=== PATIENT | female | born 1965 | race Caucasian/White ===

== ENCOUNTER 2024-09-12 22:57 | Inpatient (IN) | payer SELFPAY ==
--- NOTE | 2024-09-12 23:10 | XRR_ITS ---
PROCEDURE INFORMATION: Exam: XR Chest Exam date and time: 09/13/2024 12:04 AM Age: 59 years old Clinical indication: Shortness of breath; Additional info: SOB TECHNIQUE: Imaging protocol: Radiologic exam of the chest. Views: 1 view. COMPARISON: No relevant prior studies available. FINDINGS: Lungs: No large focal consolidation. Pleural spaces: No large pleural effusion. No distinct pneumothorax. Heart/Mediastinum: Cardiomediastinal silhouette is midline and normal in size. Bones/joints: No distinct acute osseous findings. Gastrointestinal tract: Gaseous distension of bowel in the left upper quadrant partially imaged. XR/XR chest 1V portable [id number] IMPRESSION: 1. No acute cardiopulmonary findings. 2. Gaseous distension of bowel in the left upper quadrant partially imaged.
--- NOTE | 2024-09-12 23:16 | ED_ITS ---
HPI - General Adult 2 General: Chief complaint: Shortness of Breath/Dyspnea Stated complaint: lethargy, headache Time Seen by Provider: 09/12/24 23:00 History of Present Illness: Patient is brought in by EMS after her neighbor called for a wellness check. Apparently the patient lives at home with numerous cats and dogs and very dirty situation. The patient has apparently been hotlined previously. The patient states that she is glad that EMS picked her up because if they had not come today she would have . When asked what she means by that she states she does not know. She states at one point that she has been having some off-and-on shortness of breath but that that has been going on for years. She denies fever, vomiting, diarrhea. She denies chest pain, shortness of breath, or abdominal pain. Upon arrival the patient is tachycardic. She has cool extremities but she states that is because they turn the AC on in the ambulance. Will check labs, EKG, blood cultures, chest x-ray, give IV fluids, and reassess. Associated symptoms: Deny chest pain, dyspnea, headache(s), nausea, rash, palpitations or vomiting Related Data Previous Rx's ?Medication ?Instructions ?Recorded albuterol sulfate 90 mcg/actuation 2 puff inhalation Q 6H PRN 05/21/24 aerosol inhaler (Ventolin HFA) shortness of breath or wheezing #8.5 grams azithromycin 250 mg tablet See Rx Instructions PO .COM PLEX #6 05/21/24 tabs Allergies Allergy/AdvReac Type Severity Reaction Status Date / Time No Known Allergies Allergy Verified 09/12/24 23:17 Review of Systems 2 Const: Denies: fever(s) or body aches Eyes: Denies: change in vision or blurry vision ENMT: Denies: throat pain Card: Denies: chest pain or palpitations Resp: Denies: dyspnea or productive cough GI: Denies: abdominal pain, nausea or vomiting : Denies: flank pain or dysuria Musc: Denies: neck pain or back pain Skin/Breast: Denies: rash Neuro: Denies: headache(s) or numbness in extremities PFSH ED 2 PFSH: Social History Smoking and tobacco/nicotine status: never used tobacco/nicotine Physical Exam 2 Const: COMMON NORMALS: patient oriented x3 and alert HENMT: COMMON NORMALS: normocephalic and atraumatic HEAD & SCALP: n ormocephalic and atraumatic Eye: COMMON NORMALS: Equal, round and reactive pupils present and EOMs intact bilaterally PUPIL: Yes Equal, round and reactive pupils present Neck/C-Spine: COMMON NORMALS: full ROM and supple Resp: COMMON NORMALS: normal respiratory effort, No retractions and No use of accessory muscles Cardio: COMMON NORMALS: regular rhythm RATE: tachycardic RHYTHM: regular rhythm GI: COMMON NORMALS: Normal to inspection, nondistended, normoactive bowel sounds present, Soft to palpation and non-tender PALPATION: Yes Soft to palpation Neuro: COMMON NORMALS: patient oriented x3 SENSORIUM/ORIENTATION: Yes alert Psych: COMMON NORMALS: mental status grossly normal and cooperative Course 2 Vital Signs: Vital signs: Vital Signs Temperature 98.0 F 09/12/24 23:18 Pulse Rate 101 H 09/13/24 00:25 Respiratory Rate 16 09/13/24 00:25 Blood Pressure 104/81 09/13/24 00:25 Pulse Oximetry 99 09/13/24 00:25 Oxygen Delivery Me thod Room Air 09/13/24 00:25 MDM - General Adult Medical Decision Making On reassessment the patient's white blood cell count came back at 17. I am concerned for sepsis. Time 0 was 12:02 AM. Will start broad-spectrum antibiotics, increase IV fluids so that she gets 30 cc/kg total bolus, and reassess. On reassessment I talked with the patient about her test results. Her troponin came back mildly elevated. Her heart rate is improved after IV fluids. I spoke with the hospitalist we will admit for observation to follow her troponin, and rule out sepsis. Lab Data 09/12/24 23:40 09/13/24 00:10 Laboratory Results WBC 17.11 10^3/uL (3.29-11.43) H 09/12/24 23:40 RBC 6.01 10^6/uL (3.85-5.65) H 09/12/24 23:40 Hgb 17.60 g/dL (11.27-16.99) H 09/12/24 23:40 Hct 54.3 % (36-47) H 09/12/24 23:40 MCV 90.3 fl (85-98) 09/12/24 23:40 MCH 29.3 pg (27-33) 09/12/24 23:40 MCHC 32.4 g/dL (30-55) 09/12/24 23:40 RDW 13.8 % (12.1-15.1) 09/12/24 23:40 Plt Count 366 10^3/cmm (157-399) 09/12/24 23:40 MPV 11.3 fL (7.4-10.4) H 09/12/24 23:40 Neut % (Auto) 79.2 % 09/12/24 23:40 Lymph % (Auto) 12.7 % 09/12/24 23:40 [place] % (Auto) 6.9 % 09/12/24 23:40 Eos % (Auto) 0.3 % 09/12/24 23:40 Baso % (Auto) 0.4 % 09/12/24 23:40 Neut # (Auto) 13.55 10^3/uL (1.8-7.7) H 09/12/24 23:40 Lymph # (Auto) 2.2 10^3/uL (0.8-4.8) 09/12/24 23:40 [place] # (Auto) 1.2 10^3/uL (0.2-0.9) H 09/12/24 23:40 Eos # (Auto) 0.1 10^3/uL (0.0-0.8) 09/12/24 23:40 Baso # (Auto) 0.1 10^3/uL (0.0-0.1) 09/12/24 23:40 Nucleated RBC % (auto) 0 % 09/12/24 23:40 Nucleated RBCs # 0.0 /100WBC 09/12/24 23:40 Sodium 135 mmol/L (136-145) L 09/13/24 00:10 Potassium 3.1 mmol/L (3.5-5.1) L 09/13/24 00:10 Chloride 95 mmol/L (98-107) L 09/13/24 00:10 Carbon Dioxide 17 mmol/L (22-29) L 09/13/24 00:10 Anion Gap 26.1 (5-19) H 09/13/24 00:10 BUN 14 mg/dL (8-23) 09/13/24 00:10 Creatinine 0.9 mg/dL (0.5-0.9) 09/13/24 00:10 GFR Calculation 63.9 mL/min (90-130) L 09/13/24 00:10 Glucose 109 mg/dL (65-115) 09/13/24 00:10 POC Glucose 122 mg/dL (70-110) H 09/12/24 23:56 Calculated Osmolality 281 mOsm/kg (285-295) L 09/13/24 00:10 Lactic Acid 2.7 mmol/L (0.5-2.2) H 09/12/24 23:40 Calcium 10.4 mg/dL (8.5-10.5) 09/13/24 00:10 Magnesium 1.7 mg/dL (1.7-2.3) 09/13/24 00:10 Total Bilirubin 0.6 mg/dL (0.15-1.2) 09/13/24 00:10 AST 16 U/L (0-32) 09/13/24 00:10 ALT 9 U/L (0-33) 09/13/24 00:10 Alkaline Phosphatase 72 U/L (35-105) 09/13/24 00:10 Creatine Kinase 44 U/L (26-192) 09/13/24 00:10 Troponin T Baseline 26 ng/L (0-10) H 09/12/24 23:40 Total Protein 7.6 g/dL (6.6-8.7) 09/13/24 00:10 Albumin 4.0 g/dL (3.5-5.2) 09/13/24 00:10 Globulin 3.6 g/dL (1.3-4.6) 09/13/24 00:10 Amorphous Sediment Not Reportable 09/13/24 00:44 Salicylates < 0.3 mg/dL (3-10) L 09/13/24 00:10 Urine Opiates Screen Negative ng/mL (Negative) 09/13/24 00:44 Acetaminophen < 5.0 ug/mL (10-30) L 09/13/24 00:10 Ur Barbiturates Screen Negative ng/mL (Negative) 09/13/24 00:44 Ur Phencyclidine Scrn Negative ng/mL (Negative) 09/13/24 00:44 Ur Amphetamines Screen Negative ng/mL (Negative) 09/13/24 00:44 U Benzodiazepines Scrn Negative ng/mL (Negative) 09/13/24 00:44 Urine Cocaine Screen Negative ng/mL (Negative) 09/13/24 00:44 U Marijuana (THC) Screen Negative ng/mL (Negative) 09/13/24 00:44 Ethyl Alcohol < 10 mg/dL (0-10) 09/13/24 00:10 All radiology interpretation(s) finalized by discharge Critical Care Time 2 Critical Care Time: Critical Care Time: Yes Total Critical Care Time: 35 Attestation: This case had a high probability of a clinically significant, sudden, or life threatening deterioration of this patient's condition which required my full and direct attention, intervention and personal management. Discharge Plan Discharge Patient Disposition: Placed in Observation Clinical Impression: Elevated troponin, Sepsis Coding Level of Care Code ED Compactor Driver for Priscilla Victoria
[2024-09-12 23:18] VITALS: BP 97/69; PULSE 107; RESP 17; TEMP 36.7; O2SAT 97; BMI 25.7
[2024-09-12] MEDS: sodium chloride 0.9% 1,000 ML 999 ML IV (23:35)
--- NOTE | 2024-09-12 23:45 | ECG_ITS ---
[facility]. 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 Measurements Intervals [place] Rate: 94 P: 21 GA: 160 QRS: -54 QRSD: 110 T: 17 QT: 351 QTc: 441 Interpretive Statements SINUS RHYTHM LEFT AXIS DEVIATION [QRS AXIS < -30] No previous ECG available for comparison Electronically Signed On 09-14-2024 22:05:49 CDT by Félix Chambers M.D. [email or web address]
[2024-09-12 23:52] LABS: Basophils # 0.1 10^3/uL (0.0-0.1); Basophils % 0.4 %; Eosinophils # 0.1 10^3/uL (0.0-0.8); Eosinophils % 0.3 %; Hematocrit 54.3 % (36-47); Lymphocytes # 2.2 10^3/uL (0.8-4.8); Lymphocytes % 12.7 %; Mean Corpuscular HGB Conc 32.4 g/dL (30-55); Mean Corpuscular Hemoglobin 29.3 pg (27-33); Mean Corpuscular Volume 90.3 fl (85-98); Mean Platelet Volume 11.3 fL (7.4-10.4); Monocytes # 1.2 10^3/uL (0.2-0.9); Monocytes % 6.9 %; Neutrophils # 13.55 10^3/uL (1.8-7.7); Neutrophils % 79.2 %; Nucleated Red Blood Cells % 0 %; Platelet Count 366 10^3/cmm (157-399); Red Blood Count 6.01 10^6/uL (3.85-5.65); Red Cell Distribution Width 13.8 % (12.1-15.1); White Blood Count 17.11 10^3/uL (3.29-11.43)
[2024-09-12 23:55] VITALS: BP 119/74; PULSE 97; RESP 17; O2SAT 97
[2024-09-13] VITALS (11 sets, daily range): BP systolic 85–131; BP diastolic 54–96; PULSE 69–123; RESP 14–22; TEMP 36.3–36.7; O2SAT 94–100; BMI 24.4
[2024-09-13 00:01] LABS: Glucose Point of Care 122 mg/dL (70-110)
--- NOTE | 2024-09-13 00:02 | PC.NURSE ---
patient BIB EMS. patient's neighbor called for welfare check on patient due to not seeing her for 4 days. Fire Department and EMS responded. Patient was A/O, had vague c/o, headache at times, huffing and puffing and having to use her inhaler on regular basis for the last few days. She is A/O x 4. Of note, EMS stated patient is living in deplorable conditions. She has 30 cats in her house as well as 4 dogs. She is covered in cat hair and her shoes are coated in animal feces. Her clothing is covered in cat hair and filth. She has been hot lined by EMS and they were informed that a vocational case manager will be contacting the patient in the morning.
[2024-09-13] MEDS: sodium chloride 0.9% 1,000 ML 999 ML IV (00:10)
[2024-09-13 00:13] LABS: Lactic Sepsis W/Reflex 2.7 mmol/L (0.5-2.2)
[2024-09-13 00:19] LABS: Troponin(5th) Baseline 26 ng/L (0-10)
[2024-09-13] MEDS: piperacillin-tazobactam 3.375 GM in sodium chloride 0.9% (plus) 50 ML IV (00:20)
[2024-09-13] MEDS: sodium chloride 0.9% 250 ML 500 ML IV (00:35)
[2024-09-13 00:40] LABS: Alanine Aminotransferase 9 U/L (0-33); Alkaline Phosphatase 72 U/L (35-105); Anion Gap 26.1 (5-19); Aspartate Amino Transferase 16 U/L (0-32); Blood Urea Nitrogen 14 mg/dL (8-23); Calcium 10.4 mg/dL (8.5-10.5); Carbon Dioxide 17 mmol/L (22-29); Chloride 95 mmol/L (98-107); Creatine Phosphokinase 44 U/L (26-192); Creatinine Clr Calc Pharmacy 79.8014; Globulin 3.6 g/dL (1.3-4.6); Glomerular Filtration Rate 63.9 mL/min (90-130); Glucose 109 mg/dL (65-115); Magnesium 1.7 mg/dL (1.7-2.3); Osmolality Calculated 281 mOsm/kg (285-295); Potassium 3.1 mmol/L (3.5-5.1); Sodium 135 mmol/L (136-145); Total Bilirubin 0.6 mg/dL (0.15-1.2); Total Protein 7.6 g/dL (6.6-8.7)
[2024-09-13 00:41] LABS: Acetaminophen < 5.0 ug/mL (10-30); Alcohol Level < 10 mg/dL (0-10); Salicylate < 0.3 mg/dL (3-10)
[2024-09-13 01:02] LABS: Bilirubin Urine Negative (Negative); Blood Urine Negative (Negative); Glucose Urine UA Negative (Normal); Ketones Urine 4+ (Negative); Leukocyte Esterase Urine 1+ (Negative); Nitrate Urine Negative (Negative); Protein Urine 1+ (Negative); Specific Gravity, Urine 1.028 (1.005-1.030); Urine Appearance Clear (CLEAR); Urine Color Yellow (Yellow); pH Urine 6.5 (5-7)
[2024-09-13 01:07] LABS: Add Urine Microscopic? YES; Bacteria Urine 1+ /hpf; Hyaline Casts Urine 34.74 /lpf; RBC Urine 0-2 /hpf (0-2)
[2024-09-13 01:09] LABS: Amphetamines Screen Urine Negative (Negative); Barbiturates Screen Urine Negative (Negative); Benzodiazepines Screen Urine Negative (Negative); Cocaine Screen Urine Negative (Negative); Opiate Screen Urine Negative (Negative); PCP Screen Urine Negative (Negative); THC Screen Urine Negative (Negative)
[2024-09-13 01:15] LABS: Add Urine Culture? Yes; UA Slide Review UA Slide Review Perf
[2024-09-13 01:37] LABS: Reflex Lactate Order REFLEX LACTIC ORDERD
[2024-09-13] MEDS: vancomycin 1,750 MG/350 ML PIGGYBACK 175 MG IV (01:45)
[2024-09-13 02:09] LABS: Troponin 5 2HR 22.68 ng/L (0-10)
[2024-09-13 02:10] LABS: Troponin 5 2HR Delta -3.32 ABS# (0-10)
--- NOTE | 2024-09-13 02:20 | PM.HP ---
Providers/Chief Complaint Admitting Physician: Steve Valadez MD Primary Care Provider: None currently since [facility] Chief Complaint: lethargy, headache History of Present Illness Deepika Catalan is a 59 year old female lives alone in a house with reported 30 cats and 4 dogs. The patient states she does not travel to the store because of the cost of cabs. She orders her supplies and food from [employer] and the boxes were building up and neighbor did not see her for few days so called 911 for a welfare check. She states that ambulance, fire department and police all showed up. Patient states she has not been feeling that great recently with asthma chronic bronchitis restrictive lung disease since black mold exposure 12 to 15 years ago. The last few days she has had a dry cough dyspnea on exertion and felt unsteady on her feet. She was brought to the hospital where she was found to be in very poor hygienic condition but also found to have elevated troponin, lactic acid and white count. She was given broad-spectrum antibiotics, blood cultures and referred for admission. Patient reports no pain or headache or myalgias. She denies fevers or chills she does have dyspnea on exertion and sweating with exertion. Patient tells me she fell a couple times noninjury falls next to the bed within the last month Review of Systems Narrative: Patient reports weight loss from 400 pounds down to 168 lost 250 pounds at a rate of 1 to 2 pounds a week. She states this maintained her skin. 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 She moved here to take care of her mom who then of lung cancer age 1999. Patient states she went back to work after that and had some visual kaleidoscope lights associate with hypertension per the doctor that saw her at the time. Sounds like she stopped working at that time. Patient is tangential historian. She is both reported that she told the police that she thought she was being arrested and that she felt fine and she then also told the evaluating emergency physician that if she was not seen today she would have . Patient tells me that she she has felt sick but not specific symptoms but also has a sense of impending doom at times Medications/Allergies Home Medications ?Medication ?Instructions ?Recorded ?Confirmed ?Last Taken ?Type albuterol sulfate 90 mcg/actuation 2 puff inhalation Q6H PRN 05/21/24 05/21/24 Unknown Rx aerosol inhaler (Ventolin HFA) shortness of breath or wheezing #8.5 grams azithromycin 250 mg tablet See Rx Instructions PO .COMPLEX #6 05/21/24 05/21/24 Unknown Rx tabs Allergies Allergy/AdvReac Type Severity Reaction Status Date / Time No Known Allergies Allergy Verified 09/12/24 23:17 PFSH Acute PFSH: Social History (Updated 09/13/24 @ 02:27 by Steve Valadez MD) Smoking and tobacco/nicotine status: never used tobacco/nicotine Alcohol intake: never Substance/Drug Use: never Additional social history: Patient lives alone she is uncertain regarding CODE STATUS and we discussed that that defaults to full code which she understands on 09/13/2024 as discussed with Steve Valadez MD Vitals/I&O/Wt Last Vital Signs Temp 98.0 F 09/12/24 23:18 Pulse 103 H 09/13/24 01:30 Resp 19 H 09/13/24 01:30 BP 114/96 09/13/24 01:30 Pulse Ox 97 09/13/24 01:30 O2 Del Method Room Air 09/13/24 01:30 09/12/24 09/12/24 09/13/24 14:59 22:59 06:59 Intake Total 50 / 50 Balance 50 / 50 Weight last 48 hrs Weight 83.915 kg Physical Exam Narrative: General Well-developed well-nourished tall female in no acute cardiopulmonary distress she is dirty with soil or stool on her face on the lateral cheeks. She smells badly of body odor. CV regular rate and rhythm Lungs clear to auscultation with good air movement no significant wheezes Abdomen positive bowel sounds soft nontender Calves no tenderness cords pretibial edema or asymmetry Skin warm and dry soiled Mentation alert and oriented pleasant she is tangential and talkative Data 09/12/24 23:40 09/13/24 00:10 Micro: Microbiology 09/12/24 23:44 Blood Culture - Preliminary Blood SPECIMEN COLLECTED 09/12/24 23:40 Blood Culture - Preliminary Blood SPECIMEN COLLECTED A&P Assessment and plan (1) Sepsis: Patient received fluid boluses and empiric antibiotics. Urine did come back with squamous cells but also bacteria, leukocyte esterase and ketones. This may represent contamination. Cultures pending blood cultures also pending. Will obtain COVID flu and RSV study (2) Elevated troponin: Repeat troponin pending patient denies chest pain (3) Hypokalemia: Potassium will be replaced and check magnesium and phosphorus levels (4) Metabolic acidosis: Fluid boluses and recheck PDMP PDMP Reviewed: Not Reviewed Attestations Medical Necessity Statement*: Patient is admitted via observation and anticipated to stay only 1-2 midnights Coding Level of Care Code Acute Code for [facility] Fwd Diagnoses Sepsis A41.9 Elevated troponin R79.89 Hypokalemia E87.6 Metabolic acidosis E87.20 Time Spent (min) 70
[2024-09-13 02:46] LABS: Magnesium 1.8 mg/dL (1.7-2.3); Phosphorus 2.5 mg/dL (2.5-4.5)
[2024-09-13 02:52] LABS: Creatine Phosphokinase 105 U/L (26-192)
[2024-09-13 03:14] LABS: Lactic Acid level (Lactate) 1.2 mmol/L (0.5-2.2)
[2024-09-13 03:37] LABS: Influenza A NEGATIVE (Negative); Influenza B NEGATIVE (Negative); Respiratory Syncytial Virus Ce NEGATIVE (Negative); SARS-CoV-2 PCR NEGATIVE (Negative)
[2024-09-13] MEDS: cefTRIAXone 1,000 mg SDV 1000 MG IVP (04:10)
[2024-09-13] MEDS: enoxaparin 40 mg/0.4 mL Syringe SUBCUT (04:11)
[2024-09-13] MEDS: sodium chlor 0.9% + KCl 20 mEq 20 MEQ/1,000 ML BAG 100 MEQ IV ×3 (04:11→23:50)
--- NOTE | 2024-09-13 07:46 | PHA.VACGOAL ---
Vancomycin Goal - Goal Vancomycin Goal:: 15-20 mg/L Vancomycin Indication:: Other (SEPSIS) - Therapy Current therapy:: Other Antibiotic (CEFTRIAXONE) Day of therpy:: Day []of [] . Actual body weight (kg): 185 lb 14.4 oz - Data Labs: WBC 17.11 10^3/uL (3.29-11.43) H 09/12/24 23:40 RBC 6.01 10^6/uL (3.85-5.65) H 09/12/24 23:40 Hgb 17.60 g/dL (11.27-16.99) H 09/12/24 23:40 Hct 54.3 % (36-47) H 09/12/24 23:40 MCV 90.3 fl (85-98) 09/12/24 23:40 MCH 29.3 pg (27-33) 09/12/24 23:40 MCHC 32.4 g/dL (30-55) 09/12/24 23:40 RDW 13.8 % (12.1-15.1) 09/12/24 23:40 Sodium 135 mmol/L (136-145) L 09/13/24 00:10 Potassium 3.1 mmol/L (3.5-5.1) L 09/13/24 00:10 Chloride 95 mmol/L (98-107) L 09/13/24 00:10 Carbon Dioxide 17 mmol/L (22-29) L 09/13/24 00:10 Anion Gap 26.1 (5-19) H 09/13/24 00:10 BUN 14 mg/dL (8-23) 09/13/24 00:10 Creatinine 0.9 mg/dL (0.5-0.9) 09/13/24 00:10 GFR Calculation 63.9 mL/min (90-130) L 09/13/24 00:10 Last dialysis session:: N/A Treatment plan:: new consult Regimen:: LOADING DOSE OF 1750 MG X1 GIVEN. STARTING MAINTENANCE DOSE OF 1250 MG Q12H PER DOSING PROTOCOL. Follow up:: WILL MONITOR AND CONTINUE TO FOLLOW UP DAILY.
--- NOTE | 2024-09-13 11:37 | PC.PHAR ---
PAtient states she ordered boost because she doesn't eat much but has been sick so hasn't drank it in over a week . PAtient also states she takes Alesio for asthma . She had some at home , then stated since Cov[place]. 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 Last fill for her inhaler was 25days.
[2024-09-13] MEDS: vancomycin 1,250 MG/250 ML PIGGYBACK 166.67 MG IV (13:45)
--- NOTE | 2024-09-13 17:37 | P.PN_ITS ---
Subjective 2 Subjective: Patient is a difficult historian with tangential thought process. On one hand she states that she has been sick for years and was bedridden for 2 years but then got better. Then she states in May she had acute bronchitis and was given an inhaler and Zithromax. She states that she ran out of the inhaler and got severely worse these last few days. She states that she was scared when the well check was done with the amount of responders. She at one time tells me she had no Ventolin to use and then reported that she just did not think she needed it because she did not think she had an asthma attack. The report from the police and other responders is that she was actively using the inhaler and not improving. She does reveal that she is a loner and does not go out of the house. She reports she does not like to talk to other people and that her family are her cats. While on one hand she knew she was getting sicker on the other hand she reports she did not know she was that sick. It is difficult to have educational conversation with her Vitals/I&O/Wt Last Vital Signs Temp 98.0 F 09/13/24 16:00 Pulse 104 H 09/13/24 16:00 Resp 17 09/13/24 16:00 BP 98/60 09/13/24 16:00 Pulse Ox 96 09/13/24 16:00 O2 Del Method Room Air 09/13/24 16:00 09/13/24 09/13/24 09/13/24 06:59 14:59 22:59 Intake Total 2880 / 2880 1796.667 / 1796.667 250 / 2046.667 Balance 2880 / 2880 1796.667 / 1796.667 250 / 2046.667 Weight last 48 hrs Weight 84.323 kg Weight 79.469 kg Weight 83.915 kg Physical Exam 2 Narrative: Patient awake alert she answers orientation questions appropriate but she is otherwise tangential and circular and repetitive in her conversation Patient's teeth/jaw look protuberant and misaligned with mirror observation and palpation of the jawline I do not discern a palpable mass Heart regular rate and rhythm normal S1-S2 without murmurs clicks gallops or rubs Lungs rhonchi at the left base overall poor inspiratory effort and some scattered fine crackles Abdomen soft nontender nondistended positive bowel sounds Extremities nonpitting edema to the mid calf area Neuro moves all extremities equally good strength no sensory deficit Psych I am unclear if she might have an on underlying psychiatric condition versus lack of insight or lacking decision making capability Data 09/12/24 23:40 09/13/24 00:10 Micro: Microbiology 09/12/24 23:44 Blood Culture - Preliminary Blood SPECIMEN COLLECTED 09/12/24 23:40 Blood Culture - Preliminary Blood SPECIMEN COLLECTED A&P Assessment and plan (1) Sepsis: Patient received fluid boluses and empiric antibiotics. Urine did come back with squamous cells but also bacteria, leukocyte esterase and ketones. This may represent contamination. Cultures pending blood cultures also pending. Respiratory panel is negative (2) Elevated troponin: No delta change for second troponin (3) Hypokalemia: Potassium will be replaced Magnesium level 1.8 phosphorus 2.5 She is likely hypokalemic from poor oral intake (4) Metabolic acidosis: Fluid boluses and recheck Plan Initially patient was reportedly briefly refusing most consults and care. She reports she did not feel comfortable talking to the [facility] worker. I offered to meet with the [facility] worker and myself and the patient is agreeable After multiple attempts I explained to the patient the usual care in the hospital includes bathing and she eventually allowed a bath. However she did not allow her hair to be washed which appears to be significantly tangled under a hat with completely covered with cat hair and malodorous. As discussed in team rounds today I agreed to order a dementia screening evaluation with a MoCA or slums as well as OT to assess for home skills. She did participate with PT and OT. Will order speech therapy for cognitive eval Consider psych consult for underlying psych psychiatric illness versus lack of capacity to understand medical condition PDMP PDMP Reviewed: Not Reviewed Attestations 2 Medical Necessity Statement*: Patient presented with sepsis requires continued admission for IV antibiotics and the usual treatment of sepsis Coding Level of Care Code Acute Code for [facility] Fwd Diagnoses Sepsis A41.9 Elevated troponin R79.89 Hypokalemia E87.6 Metabolic acidosis E87.20
[2024-09-14] VITALS (12 sets, daily range): BP systolic 100–120; BP diastolic 58–74; PULSE 66–107; RESP 15–18; TEMP 36.3–37.1; O2SAT 94–99
[2024-09-14] MEDS: cefTRIAXone 1,000 mg SDV 1000 MG IVP (02:52)
[2024-09-14] MEDS: vancomycin 1,250 MG/250 ML PIGGYBACK 166.6 MG IV (02:56)
[2024-09-14] MEDS: enoxaparin 40 mg/0.4 mL Syringe SUBCUT (02:57)
[2024-09-14 06:04] LABS: Anion Gap 12.4 (5-19); Blood Urea Nitrogen 9 mg/dL (8-23); Calcium 9.1 mg/dL (8.5-10.5); Carbon Dioxide 22 mmol/L (22-29); Chloride 108 mmol/L (98-107); Glucose 126 mg/dL (65-115); Osmolality Calculated 288 mOsm/kg (285-295); Potassium 3.4 mmol/L (3.5-5.1); Sodium 139 mmol/L (136-145)
--- NOTE | 2024-09-14 09:43 | PC.CHAP ---
Pastoral Care Encounter/Spiritual Assessment Type of Contact [] Declined dip tanker visit [] Patient/Family/Request visit [] Outpatient visit [] Follow-up visit [] Physician referral [] Code/Alert [] Routine visit [] Staff referral [] Actively dying [] Patient sleeping [] Family support [] [] Out of room [] Palliative care [] [x] Receiving care in room [] Pre-surgical visit [] Trauma [] Long length of stay [] ICU visit [] Other: Relational/Emotional Strength [] Patient feels connected with others/family/visitors/staff [] Distress [] Loneliness/isolation [] Abandonment Spirituality of Patient [] Person of [place] [] Attends Amish of their [place] [] Believes in Prayer [] Reads Bible or Scientology materials [] There are Spiritual issues to be addressed Home Therapy Teacher Interventions [] Prayer [] Active listening [] Non-anxious presence [] Spiritual/emotional support [] Crisis/trauma care [] Spiritual counseling [] Bereavement support [] Provided bereavement packet [] Provided Bible/devotional materials [] Provided toy/stuffed animal, coloring book to patient or family member [] Provided Communion [] Anointing/[place] [] Salvation [] Completed spiritual assessment [] Other: Impact on Illness or Injury [] Angry [] Fearful [] Anxious [] Often cries [] Exhaustion [] Unable to work [] Unable to attend zoroastrianism [] Unable to walk/stand [] Unable to read [] Unable to drive [] Unable to eat/drink [] Unable to sleep [] Unable to be with family [] Patient intubated [] Other: Summary Time spent with patient
--- OUTSIDE RECORDS SUMMARY | 2024-09-14 11:03 | XMS_ITS | Clinical Summary ---
Author Organization [facility] Address [address] [place] [address] Care Team Providers Care Blanket Maker Name Role Phone Julian Nogueira MD Primary Care Provider [phone] Allergies No known active allergies Medications ibuprofen (MOTRIN) 200 mg tablet Take 200 mg by mouth every 6 hours as needed for Pain, Mild. Active Ciclesonide (ALVESCO) 160 mcg/actuation HFA Aerosol InhalerIndication s:Mild persistent asthma without complication Take 2 Puffs by inhalation 2 times daily. 1 Gram 5 8 Active montelukast (SINGULAIR) 10 mg tabletIndications :Mild persistent asthma without complication Take 1 Tablet (10 mg) by mouth daily at bedtime. 30 Tablet 5 8 Active VENTOLIN HFA 90 mcg/actuation inhalerIndication s:Mild persistent asthma without complication TAKE TWO TO THREE PUFFS BY INHALATION EVERY 6 HOURS NEEDED FOR SHORTNESS OF BREATH 18 Gram 2 9 Active Active Problems Problem Noted Date Diagnosed Date Severe obesity (BMI 35.0-39.9) with comorbidity 07/25/2016 Mild persistent asthma without complication 07/06 Social History Tobacco Use Types Packs/Day Years Used Date Smoking Tobacco: Never Smokeless Tobacco: Never Alcohol Use Standard Drinks/Week Comments Yes 0 (1 standard drink = 0.6 oz pur e alcohol) rare Comments No Sex and Gender Information Value Date Recorded Sex Assigned at Not on file Legal Sex Female 8:27 AM CDT Gender Identity Not on file Sexual Orientation Not on file Last Filed Vital Signs Vital Sign Reading Time Taken Comments Blood Pressure 129/92 07/14/2017 9:12 AM CDT Pulse 72 07/14/2017 9:12 AM CDT Temperature 36.7 C (98 F) 07/14/2017 9:12 AM CDT Respiratory Rate 12 07/14/2017 9:12 AM CDT Oxygen Saturation 95% 07/14/2017 9:12 AM CDT Inhaled Oxygen Concentration - - Weight 119.6 kg (263 lb 9.6 oz) 07/14/2017 9:12 AM CDT Height 180.3 cm (5' 11 ) 07/14/2017 9:12 AM CDT Body Mass Index 36.76 07/14/2017 9:12 AM CDT Plan of Treatment Health Maintenance Due Date Last Done Comments Pre-Diabetes and Diabetes Screening 1964 DTAP/TDAP/TD VACCINES (1 - Tdap) 08/22/1983 HPV/Cotest (21-29) 1985 CERVICAL CANCER SCREENING 1994 HPV/Cotest (30-65) 1994 PAP SMEAR 1994 BREAST CANCER SCREENING 2004 COLORECTAL SCREENING 2009 Colorectal Cancer Screening 2009 FIT-DNA Q 3 years 2009 FIT/FOBT Q 1 year 2009 Flex Sig/CT Colonography Q 5 years 2009 ZOSTER VACCINE (1 of 2) 2014 INFLUENZA VACCINE (#1) 2023 RSV VACCINE (60+ or ) (1 - Risk 60-74 years 1-dose series) 2024 HEPATITIS B VACCINES Aged Out No long er eligible based on patient's age to complete this topic Care Teams Blanket Maker Relationship Specialty Start Date End Date Julian Nogueira MD [address] [place] [address] PCP - General Family Practice 09/03/18
--- OUTSIDE RECORDS SUMMARY | 2024-09-14 11:03 | XMS_ITS | Clinical Summary ---
Author Organization [facility] Address [address] [facility] Attn: Epic Prelude ADT MIKE DEJESUS [address] Care Team Providers Care Stock Control Supervisor Name Role Phone Julian Nogueira MD Primary Care Provider [phone] Allergies No known active allergies Medications albuterol sulfate (VENTOLIN HFA) 90 mcg/Actuation inhalerIndication s:Mild persistent asthma without complication TAKE TWO TO THREE PUFFS BY INHALATION EVERY 6 HOURS NEEDED FOR SHORTNESS OF BREATH 18 Gram 2 9 Active montelukast (SINGULAIR) 10 mg tabletIndications :Mild persistent asthma without complication Take 1 Tablet (10 mg) by mouth daily at bedtime. 30 Tablet 5 8 Active Ciclesonide 160 mcg/actuation HFA Aerosol InhalerIndication s:Mild persistent asthma without complication Take 2 Puffs by inhalation 2 times daily. 1 Gram 5 8 Active ibuprofen (MOTRIN) 200 mg tablet Take 200 mg by mouth every 6 hours as needed for Pain, Mild. 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
--- NOTE | 2024-09-14 11:55 | PC.NUTR ---
Current PO intake likely meeting Pt's estimated needs. During interview, Pt rambled in regards to what and how she ate at home, so will report general observations. Pt said she is a horrible cook and prefers to microwave food. When she does eat, she shares with her cats and dog. Conflicting reports presented re: last 3-4 weeks, but in general said her appetite was down and she was experiencing GERD and referenced vomiting often after eating or drinking. She enjoys the food here and is currently eating on average 75% of her meals which meets her EEN%. At home she said she drinks as many as 4 Boost protein shakes/day. Pt commented that at one time she weighed 400lbs and has gotten down to 185lbs by losing 1-2lbs/week over past 3-4years.
[2024-09-14] MEDS: sodium chlor 0.9% + KCl 20 mEq 20 MEQ/1,000 ML BAG 100 MEQ IV (12:31)
[2024-09-14] MEDS: albuterol 2.5 mg/3 mL Neb INHALATION ×2 (15:23→19:54)
--- NOTE | 2024-09-14 16:12 | P.NPUCON_ITS ---
Providers/Reason for Consult 2 Consulting Physican/Specialty*: Darryl Alba MD/Psychiatry Reason for Consult*: competency Attending Physician: Robin Mata, DO Psych Consult HPI History of Present Illness Deepika Catalan is a 59 year old female with no prior history of inpatient or outpatient psychiatric history who presents to [facility] via ambulance after a wellness check had revealed that the patient had been struggling with shortness of breath and reporting that she had ran out of her inhaler several days ago. The patient had reported that she had been at her home on 09/10/2024 and states that she was surprised to find that 2 people were in side of her lyons of her house. She reports that they had revealed to her that they were performing a wellness check and the patient reports that someone around her possibly a neighbor had informed the authorities to send someone into her home out of concern that something may have happened to the patient. 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 She had complained that she had her [employer] delivery stolen previously and stated that she was always vigilant about people stealing things as she states that she had grown up in a impoverished part of [facility] where she needed to keep mindful of people taking other peoples items in the mail. The patient reports that she has indeed been living in a house that she owns that requires significant work. She reports that the home was inherited by her after her mother in 2013. She reports at that time it was already less than ideal for her. She reports that she is motivated to fix up the home and states that it is not an optimal situation for but it is her home. She reports that she has no support here from family or friends and describes being somewhat isolative. She reports no issues with depression or social phobia. She reports that she has a tendency to bring cats into her home and states that she has 30 cats and reports that she only has 8 litter boxes. She states that she knows that she needs to have more litter boxes and reports that she was upset that 3 of her kittens had . She reports that she had been diagnosed with restrictive lung disease stating that she had 30% lung capacity initially but it has improved to 50% recently. She had stated that she had been exposed to black mold approximately 15 years ago. The patient had reported that she has never had thoughts of hurting herself or others. She denied any problems with sleep or appetite. She had reported that she has been motivated to lose weight and had lost more than 200 pounds over the past few years. She does report at times that she struggles with chronic worry and states that she often has thoughts of feeling as if something bad were going to happen. She denies any history of psychosis. She denied any history of tommy. Psychiatric history: None reported Substance abuse history: None reported Medical history: As stated-Asthma, Restricted Pulmonary Disease. Medications: As stated Family psychiatric history: Reported history of alcoholism in both sides of the family Allergies: Bee pollen Social history: Patient was born in [place] and raised by her mother. She reports that the patient had and states that her mother had been her primary parent. She reports that both parents had remarried. She reports that she was an only child and has 3 stepsisters that she has limited contact with. 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 She reports no prior history of sexual physical or emotional abuse. She reports she has never been and has no children. She reports being content in her current situation as she moved here to care for her mother in 2010. Her mother in 2013. She states that she owns her current home and has numerous cats as pets. She is currently not on disability. She currently lives in [place] in her own home. Meds Home Medications and Allergies Home Medications ?Medication ?Instructions ?Recorded ?Confirmed ?Last Taken ?Type albuterol sulfate 90 mcg/actuation 2 puff inhalation Q 6H PRN 05/21/24 09/13/24 09/12/24 Rx aerosol inhaler (Ventolin HFA) shortness of breath or wheezing #8.5 grams food supplemt, lactose-reduced 1 ea PO DAILY 09/13/24 09/13/24 09/05/24 History Allergies Allergy/AdvReac Type Severity Reaction Status Date / Time bee pollen Allergy Mild Itching on Unverified 09/14/24 06:52 feet Per patent. Current Medications Current Medications Generic Name Dose Route Start Last Admin Trade Name Freq PRN Reason Stop Dose Admin Albuterol Sulfate 2.5 mg 09/14/24 13:30 09/14/24 15:23 Albuterol 2.5 Mg/3 Ml Neb INHALATION 2.5 mg Q4H.RESPIRATORY ALEJO Administration Ceftriaxone Sodium 1,000 mg 09/13/24 03:21 09/14/24 02:52 Ceftriaxone 1,000 Mg Sdv IVP 1,000 mg Q24H ALEJO Administration Protocol Enoxaparin Sodium 40 mg 09/13/24 03:21 09/14/24 02:57 Enoxaparin 40 Mg/0.4 Ml Syringe SUBCUT 40 mg Q24H ALEJO Administration Potassium Chloride/Sodium Chloride 20 meq in 1,000 mls @ 50 mls/hr 09/13/24 03:21 09/14/24 12:31 Sodium Chlor 0.9% + Kcl 20 Meq IV 100 mls/hr .Q20H ALEJO Administration Non-Formulary Medication 1 each 09/14/24 09:00 09/14/24 13:07 Food Supplemt, Lactose-Reduced PO Not Given DAILY ALEJO PFSH NPU 2 PFSH: Social History (Updated 09/13/24 @ 02:27 by Steve Valadez MD) Smoking and tobacco/nicotine status: never used tobacco/nicotine Alcohol intake: never Substance/Drug Use: never Additional social history: Patient lives alone she is uncertain regarding CODE STATUS and we discussed that that defaults to full code which she understands on 09/13/2024 as discussed with Steve Valadez MD Mental Status Exam 2 MSE Comments: Patient is casually dressed white female with poor hygiene and good eye contact who was friendly and cooperative on interview. Her speech was normal in regards to rate and productivity with no evidence of pressured speech. Her thought process was circumstantial at times and excessively detailed with extraneous information but was able to follow a stream of thought. She denied any homicidal or suicidal ideation. There was no evidence of delusional thinking. Her mood was described as okay. Her affect appeared slightly restricted in range. She did not appear to be responding to internal stimuli. She was alert and oriented to person, place, time, and situation. She was able to follow two- step commands. Her immediate recall was 3 out of 3 and recall of 3 words after 5 minutes was 3 out of 3 as well. Her attention span appeared fair. Her insight appeared limited. Her judgment at this time was guarded. Her impulse control appeared adequate. She did appear to understand the potential problem with her home situation and expressed motivation to correct her situation. Vitals/I&O/Wt Last Vital Signs Temp 97.8 F 09/14/24 12:00 Pulse 99 09/14/24 15:33 Resp 16 09/14/24 15:23 BP 100/66 09/14/24 12:00 Pulse Ox 98 09/14/24 15:23 O2 Del Method Room Air 09/14/24 15:23 09/14/24 09/14/24 09/14/24 06:59 14:59 22:59 Intake Total 1550 / 4076.667 1720 / 1720 Balance 1550 / 4076.667 1720 / 1720 Weight last 48 hrs Weight 83.915 kg Weight 84.323 kg Weight 79.469 kg Weight 83.915 kg Data NPU 09/12/24 23:40 09/14/24 04:29 Micro: Microbiology 09/13/24 00:44 Urine Culture - Preliminary Urine,Clean Catch 09/12/24 23:44 Blood Culture - Preliminary Blood NEGATIVE TO DATE 09/12/24 23:40 Blood Culture - Preliminary Blood NEGATIVE TO DATE Microbiology 09/13/24 00:44 Urine,Clean Catch Urine Culture - Preliminary 09/12/24 23:44 Blood Blood Culture - Preliminary NEGATIVE TO DATE 09/12/24 23:40 Blood Blood Culture - Preliminary NEGATIVE TO DATE A&P Assessment and plan (1) Hypokalemia: (2) Metabolic acidosis: (3) Sepsis: Plan 5-year-old female admitted for treatment of pneumonia currently on antibiotics. At this time there appears to be no reason for inpatient psychiatric hospitalization. She seems able to make reasonable decisions and does appear to understand the potential pitfalls of returning home to a potentially poor situation in regards to her problems with breathing. She was agreeable to considering some assistance with her living situation as she had expressed desire to clean up and fix her situation but also at the same time reported financial stressors that had prevented her from being able to fix her current living situation. She likely has some personality disorder that is contributing to her current problem. 1. Suggest [place] testing if primary team wishes to determine ability for patient to live independently. 2. Sean follow. PDMP PDMP Reviewed: Not Reviewed Attestations NPU 2 Medical Necessity Statement*: Not applicable. Coding Level of Care Code Acute Code for Chg Fwd Diagnoses Hypokalemia E87.6 Metabolic acidosis E87.20 Sepsis A41.9
--- NOTE | 2024-09-14 17:23 | P.PN_ITS ---
Subjective 2 Subjective: Patient states that she is feeling better except she reports episodes of vomiting yesterday. She is feels like she might vomit but she says that she is not nauseous. She does not wish any medication for this feeling. Again we spent a lot of time discussing her situation today. She remains very circumferential in her conversation and I agree that she gives additional information not necessary to discussion. She did admit to me today that she knows her house is filthy and she would like help with cleaning up if possible. She tells me she is willing to work and discuss her finances with anyone as long as they are respectful. I explained to her that it was my duty to find out if she has the capacity to understand her condition and her health. Vitals/I&O/Wt Last Vital Signs Temp 98.0 F 09/14/24 16:00 Pulse 99 09/14/24 16:00 Resp 17 09/14/24 16:00 BP 111/67 09/14/24 16:00 Pulse Ox 98 09/14/24 16:00 O2 Del Method Room Air 09/14/24 16:00 09/14/24 09/14/24 09/14/24 06:59 14:59 22:59 Intake Total 1550 / 4076.667 1720 / 1720 Balance 1550 / 4076.667 1720 / 1720 Weight last 48 hrs Weight 83.915 kg Weight 84.323 kg Weight 79.469 kg Weight 83.915 kg Physical Exam 2 Narrative: Heart regular rate and rhythm normal S1-S2 without murmurs clicks gallops or rubs Lungs improved aeration with a few fine crackles. Abdomen soft nontender nondistended positive bowel sounds Extremities nonpitting edema to the mid calf area Psych. I do believe she has a lack of insight judgment. She could also have a personality disorder Data 09/12/24 23:40 09/14/24 04:29 Micro: Microbiology 09/13/24 00:44 Urine Culture - Preliminary Urine,Clean Catch 09/12/24 23:44 Blood Culture - Preliminary Blood NEGATIVE TO DATE 09/12/24 23:40 Blood Culture - Preliminary Blood NEGATIVE TO DATE A&P Assessment and plan (1) Sepsis: Patient received fluid boluses and empiric antibiotics. Urine did come back with squamous cells but also bacteria, leukocyte esterase and ketones. This may represent contamination. Cultures pending blood cultures also pending. Respiratory panel is negative (2) Elevated troponin: No delta change for second troponin (3) Hypokalemia: Potassium oral supplementation to continue Magnesium level 1.8 phosphorus 2.5 She is likely hypokalemic from poor oral intake (4) Metabolic acidosis: Resolved Plan Consult psych to evaluate for underlying psychiatric disorder personality disorder as well as help determine capacity for decisions. Continue current antibiotics. Pulmonary workup as an outpatient can be done about 1 month out from acute bronchitis/pneumonia therapy. I did review psychiatry's note and they do recommend K[place] testing to determine ability for patient to live independently. I am unclear if this has been done I will look in chart now. If not done will discuss with team in morning rounds. PDMP PDMP Reviewed: Not Reviewed Attestations 2 Medical Necessity Statement*: Patient presented with sepsis requires continued admission for IV antibiotics and the usual treatment of sepsis Coding Level of Care Code Acute Code for [facility] Fwd Diagnoses Sepsis A41.9 Elevated troponin R79.89 Hypokalemia E87.6 Metabolic acidosis E87.20
[2024-09-15] VITALS: BP 116/62; PULSE 70; RESP 16; TEMP 36.6; O2SAT 98
[2024-09-15 01:20] LABS: Basophils % 0.4 %; Eosinophils # 0.2 10^3/uL (0.0-0.8); Eosinophils % 2.1 %; Hematocrit 39.4 % (36-47); Lymphocytes # 3.6 10^3/uL (0.8-4.8); Lymphocytes % 42.5 %; Mean Corpuscular HGB Conc 32.2 g/dL (30-55); Mean Corpuscular Hemoglobin 28.7 pg (27-33); Mean Corpuscular Volume 88.9 fl (85-98); Monocytes # 0.7 10^3/uL (0.2-0.9); Monocytes % 8.8 %; Neutrophils # 3.88 10^3/uL (1.8-7.7); Nucleated Red Blood Cells % 0 %; Platelet Count 274 10^3/cmm (157-399); Red Blood Count 4.43 10^6/uL (3.85-5.65); Red Cell Distribution Width 14.2 % (12.1-15.1); White Blood Count 8.43 10^3/uL (3.29-11.43)
[2024-09-15 01:28] LABS: Anion Gap 16.7 (5-19); Blood Urea Nitrogen 8 mg/dL (8-23); Calcium 9.7 mg/dL (8.5-10.5); Carbon Dioxide 22 mmol/L (22-29); Chloride 108 mmol/L (98-107); Creatinine Clr Calc Pharmacy 143.6424; Glomerular Filtration Rate 125.9 mL/min (90-130); Glucose 109 mg/dL (65-115); Osmolality Calculated 295 mOsm/kg (285-295); Potassium 3.7 mmol/L (3.5-5.1); Sodium 143 mmol/L (136-145); Vancomycin Trough 10.3 ug/mL (10-15)
[2024-09-15] MEDS: sodium chlor 0.9% + KCl 20 mEq 20 MEQ/1,000 ML BAG 50 MEQ IV (02:20)
[2024-09-15] MEDS: cefTRIAXone 1,000 mg SDV 1000 MG IVP (02:21)
[2024-09-15] MEDS: enoxaparin 40 mg/0.4 mL Syringe SUBCUT (02:21)
[2024-09-15 03:53] VITALS: BP 99/65; PULSE 98; RESP 16; TEMP 36.6; O2SAT 97
[2024-09-15 07:50] VITALS: PULSE 93; RESP 17; O2SAT 97
[2024-09-15 07:53] VITALS: BP 98/59; PULSE 76; RESP 15; TEMP 36.4; O2SAT 98
[2024-09-15 08:00] VITALS: PULSE 97
[2024-09-15] MEDS: albuterol 2.5 mg/3 mL Neb INHALATION (08:05)
--- NOTE | 2024-09-15 09:50 | PM.DCS ---
Discharge Providers Date of Admission: 09/13/24 01:13 Date of Discharge: September 15, 2024 Attending Provider at Admission: Steve Valadez MD Attending Provider at Discharge: Robin Mata DO Consults: Psychiatry Diagnoses at Discharge Discharge Diagnosis (1) Sepsis: Status: Acute (2) Elevated troponin: Status: Resolved (3) Hypokalemia: Status: Acute (4) Metabolic acidosis: Status: Acute Reason for Visit Reason for Visit: lethargy, headache Brief History: Deepika Catalan is a 59 year old female lives alone in a house with reported 30 cats and 4 dogs. The patient states she does not travel to the store because of the cost of cabs. She orders her supplies and food from [employer] and the boxes were building up and neighbor did not see her for few days so called 911 for a welfare check. She states that ambulance, fire department and police all showed up. Patient states she has not been feeling that great recently with asthma chronic bronchitis restrictive lung disease since black mold exposure 12 to 15 years ago. The last few days she has had a dry cough dyspnea on exertion and felt unsteady on her feet. She was brought to the hospital where she was found to be in very poor hygienic condition but also found to have elevated troponin, lactic acid and white count. She was given broad-spectrum antibiotics, blood cultures and referred for admission NOTE: Reports from both the first responders and then by [facility] as show that the house is in disrepair and filthy. Reports that cat feces are all over the floor. The patient was found with feces on her shoes/socks and also I personally saw on her face. Hospital Course Hospital Course With patient's history of chronic bronchitis and clinical wheezing and scattered rhonchi patient was treated for pneumonia/acute bronchitis. She did not require oxygen. She was placed on antibiotics. A large portion of the patient's hospitalization revolved around concerns for her home situation and her decisions. While she is very circumferential with her discussion and she provides more information that is necessary and she repeats herself she does admit that she understands her house is in poor repair and in need of cleaning. She feels very strongly that she does not want assistance and that she can manage on her own. The psychiatrist also made the same assessment. Unfortunately the patient is self-pay and does not want assistance thus we are unable to provide services in the home. Plus her home is not sanitary for home health care to provide services. Her judgment is fair and her insight is poor. However she does display understanding of her condition. Her decisional making capacity is intact We are hopeful that with a course of antibiotics and providing her with the albuterol inhaler she will feel better to start to get services and assistance. She will follow-up with her primary care in 1 to 2 weeks and I do advise PFTs in 4 weeks to assess her history of chronic bronchitis Physical Exam Narrative: Heart regular rate and rhythm normal S1-S2 without murmurs clicks gallops or rubs Lungs improved aeration with a few fine crackles. Abdomen soft nontender nondistended positive bowel sounds Extremities nonpitting edema to the mid calf area Psych. I do believe she has a lack of insight judgment. She likely has a personality disorder Discharge Data Studies Completed and Pending Completed Studies During Hospitalization Category Date Time Status XR chest 1V portable [id number] Stat Exams 09/12/24 23:10 Completed Pending at discharge Category Date Time Status BMP [Basic Metabolic Panel] AM LABS Lab 09/16/24 04:00 Ordered BMP [Basic Metabolic Panel] AM LABS Lab 09/17/24 04:00 Ordered Blood Culture Stat Lab 09/12/24 23:44 Results CBC Auto Diff [Complete Blood Count w/Auto] AM LABS Lab 09/16/24 04:00 Ordered CBC Auto Diff [Complete Blood Count w/Auto] AM LABS Lab 09/17/24 04:00 Ordered Urine Culture Stat Lab 09/13/24 00:44 Results Radiology Impressions Chest X-Ray 09/12/24 23:10 IMPRESSION: 1. No acute cardiopulmonary findings. 2. Gaseous distension of bowel in the left upper quadrant partially imaged. Laboratory Results WBC 8.43 10^3/uL (3.29-11.43) 09/15/24 00:49 RBC 4.43 10^6/uL (3.85-5.65) 09/15/24 00:49 Hgb 12.70 g/dL (11.27-16.99) 09/15/24 00:49 Hct 39.4 % (36-47) 09/15/24 00:49 MCV 88.9 fl (85-98) 09/15/24 00:49 MCH 28.7 pg (27-33) 09/15/24 00:49 MCHC 32.2 g/dL (30-55) 09/15/24 00:49 RDW 14.2 % (12.1-15.1) 09/15/24 00:49 Plt Count 274 10^3/cmm (157-399) 09/15/24 00:49 MPV 11.0 fL (7.4-10.4) H 09/15/24 00:49 Neut % (Auto) 46.0 % 09/15/24 00:49 Lymph % (Auto) 42.5 % 09/15/24 00:49 Howard % (Auto) 8.8 % 09/15/24 00:49 Eos % (Auto) 2.1 % 09/15/24 00:49 Baso % (Auto) 0.4 % 09/15/24 00:49 Neut # (Auto) 3.88 10^3/uL (1.8-7.7) 09/15/24 00:49 Lymph # (Auto) 3.6 10^3/uL (0.8-4.8) 09/15/24 00:49 Howard # (Auto) 0.7 10^3/uL (0.2-0.9) 09/15/24 00:49 Eos # (Auto) 0.2 10^3/uL (0.0-0.8) 09/15/24 00:49 Baso # (Auto) 0.0 10^3/uL (0.0-0.1) 09/15/24 00:49 Nucleated RBC % (auto) 0 % 09/15/24 00:49 Nucleated RBCs # 0.0 /100WBC 09/15/24 00:49 Sodium 143 mmol/L (136-145) 09/15/24 00:49 Potassium 3.7 mmol/L (3.5-5.1) 09/15/24 00:49 Chloride 108 mmol/L (98-107) H 09/15/24 00:49 Carbon Dioxide 22 mmol/L (22-29) 09/15/24 00:49 Anion Gap 16.7 (5-19) 09/15/24 00:49 BUN 8 mg/dL (8-23) 09/15/24 00:49 Creatinine 0.5 mg/dL (0.5-0.9) 09/15/24 00:49 GFR Calculation 125.9 mL/min (90-130) 09/15/24 00:49 Glucose 109 mg/dL (65-115) 09/15/24 00:49 POC Glucose 122 mg/dL (70-110) H 09/12/24 23:56 Calculated Osmolality 295 mOsm/kg (285-295) 09/15/24 00:49 Lactic Acid 2.7 mmol/L (0.5-2.2) H 09/12/24 23:40 Lactic Acid (Sepsis) 1.2 mmol/L (0.5-2.2) 09/13/24 02:48 Calcium 9.7 mg/dL (8.5-10.5) 09/15/24 00:49 Phosphorus 2.5 mg/dL (2.5-4.5) 09/13/24 00:10 Magnesium 1.7 mg/dL (1.7-2.3) 09/13/24 00:10 Magnesium 1.8 mg/dL (1.7-2.3) 09/13/24 00:10 Total Bilirubin 0.6 mg/dL (0.15-1.2) 09/13/24 00:10 AST 16 U/L (0-32) 09/13/24 00:10 ALT 9 U/L (0-33) 09/13/24 00:10 Alkaline Phosphatase 72 U/L (35-105) 09/13/24 00:10 Creatine Kinase 105 U/L (26-192) 09/13/24 01:44 Troponin T Baseline 26 ng/L (0-10) H 09/12/24 23:40 Troponin T 120 Minute 22.68 ng/L (0-10) H 09/13/24 01:44 Delta Troponin T -3.32 ABS# (0-10) L 09/13/24 01:44 Total Protein 7.6 g/dL (6.6-8.7) 09/13/24 00:10 Albumin 4.0 g/dL (3.5-5.2) 09/13/24 00:10 Globulin 3.6 g/dL (1.3-4.6) 09/13/24 00:10 Urine Color Yellow (Yellow) 09/13/24 00:44 Urine Appearance Clear (CLEAR) 09/13/24 00:44 Urine pH 6.5 (5-7) 09/13/24 00:44 Ur Specific [place] 1.028 (1.005-1.030) 09/13/24 00:44 Urine Protein 1+ (Negative) A 09/13/24 00:44 Urine Glucose (UA) Negative (Normal) 09/13/24 00:44 Urine Ketones 4+ (Negative) 09/13/24 00:44 Urine Blood Negative (Negative) 09/13/24 00:44 Urine Nitrate Negative (Negative) 09/13/24:44 Urine Bilirubin Negative (Negative) 09/13/24 00:44 Urine Urobilinogen 1.0 mg/dL (Negative) 09/13/24 00:44 Ur Leukocyte Esterase 1+ (Negative) A 09/13/24 00:44 Urine RBC 0-2 /hpf (0-2) 09/13/24 00:44 Urine WBC 11-20 /hpf (0-5) H 09/13/24 00:44 Ur Squamous Epith Cells 6-10 /hpf (0-5) 09/13/24 00:44 Amorphous Sediment Not Reportable 09/13/24 00:44 Urine Bacteria 1+ /hpf (NONE) H 09/13/24 00:44 Hyaline Casts 34.74 /lpf 09/13/24 00:44 Vancomycin Trough 10.3 ug/mL (10-15) 09/15/24 00:49 Salicylates < 0.3 mg/dL (3-10) L 09/13/24 00:10 Urine Opiates Screen Negative ng/mL (Negative) 09/13/24 00:44 Acetaminophen < 5.0 ug/mL (10-30) L 09/13/24 00:10 Ur Barbiturates Screen Negative ng/mL (Negative) 09/13/24 00:44 Ur Phencyclidine Scrn Negative ng/mL (Negative) 09/13/24 00:44 Ur Amphetamines Screen Negative ng/mL (Negative) 09/13/24 00:44 U Benzodiazepines Scrn Negative ng/mL (Negative) 09/13/24 00:44 Urine Cocaine Screen Negative ng/mL (Negative) 09/13/24 00:44 U Marijuana (THC) Screen Negative ng/mL (Negative) 09/13/24 00:44 Ethyl Alcohol < 10 mg/dL (0-10) 09/13/24 00:10 Influenza A (PCR) Negative (Negative) 09/13/24 02:52 Influenza Type B (PCR) Negative (Negative) 09/13/24 02:52 RSV (PCR) Negative (Negative) 09/13/24 02:52 SARS-CoV-2 (PCR) Negative (Negative) 09/13/24 02:52 Vitals Last Vital Signs Temp 97.6 F 09/15/24 07:53 Pulse 97 09/15/24 08:00 Resp 15 09/15/24 07:53 BP 98/59 09/15/24 07:53 Pulse Ox 98 09/15/24 07:53 O2 Del Method Room Air 09/15/24 07:53 Discharge Plan Discharge Patient Disposition: Home Condition: Stable Prescriptions: New cefdinir 300 mg capsule 300 mg PO BID Qty: 16 0RF albuterol sulfate [Ventolin HFA] 90 mcg/actuation HFA aerosol inhaler 2 inh inhalation QID Qty: 8.5 0RF Continued Boost Plus Liquid 1 ea PO DAILY Discontinued albuterol sulfate [Ventolin HFA] 90 mcg/actuation HFA aerosol inhaler 2 puff inhalation Q6H PRN (Reason: shortness of breath or wheezing) Qty: 8.5 0RF Discharge Orders: Discharge Order (Routine); Ordered 09/15/24 Ordered By: Robin Mata Referrals: Selvin Bryant FNP [Nurse Practitioner, Family Practice] Discharge Diet: Advance as tolerated Discharge Activity: Increase activity as tolerated Patient Instructions: Acute Bronchitis (GEN), Chronic Bronchitis (GEN) Plan of Treatment: Finish course of antibiotics Use inhaler 2 inhalations 4 times a day. If worsening shortness of breath or wheezing occurs you may use additional 2 inhalations every 1 hour as needed Please follow-up with your primary care physician in 1 week Either the hospital or your primary care physician will arrange pulmonary function tests in approximately 1 month once you are feeling better Discharge Attestations Time Spent in Discharge Care*: greater than 30 min Quality Metrics Clinical Quality Measures [ No reported AMI, CVA or VTE this stay] Coding Level of Care Code Acute Code for Chg Fwd Diagnoses Sepsis A41.9 Elevated troponin R79.89 Hypokalemia E87.6 Metabolic acidosis E87.20
[2024-09-15 11:47] VITALS: BP 110/65; PULSE 78; RESP 16; TEMP 36.4; O2SAT 95
== END 2024-09-15 11:55 | disposition home or self-care (01) | DRG 871 ==
LOC: ER 09-13 01:45 → MEDSURG 09-13 07:51
PROVIDERS: Admitting Provider Internal Medicine; Emergency Provider Emergency Medicine; Visit Provider Internal Medicine
DX: A41.9 Sepsis, unspecified organism (principal); J18.9 Pneumonia, unspecified organism; E87.20 Acidosis, unspecified; Z59.19 Other inadequate housing; R79.89 Other specified abnormal findings of blood chemistry; E87.6 Hypokalemia; J20.9 Acute bronchitis, unspecified; J42 Unspecified chronic bronchitis
CPT/HCPCS: 36415; 36416; 71045; 80048; 80053; 80202; 80306; 80307; 81001; 82550; 82962; 83605; 83735; 84100; 84484; 85025; 87040; 87086; 87637; 92523; 92610; 93005; 94640; 96365; 96366; 96367; 96372; 97110; 97116; 97162; 97165; 97530; 97535; 99285; J0696; J1650; J2405; J2543; J3370; J3372; J3480; J3535; J7030; J7050; J7613

== ENCOUNTER → 2024-09-22 10:29 | Outpatient (BNVA) | payer SELFPAY | DX: J98.4 Other disorders of lung (principal) | CPT/HCPCS: 80053; 84439; 84443; 84481; 85025 ==